=== PATIENT | female | born 1975 | race Caucasian/White ===

== ENCOUNTER 2022-08-25 06:24 | Emergency (ER) | payer MEDICAID, OTHER ==
[~2022-08-25] VITALS: Ht 168 cm; Wt 100.0 kg
[2022-08-25] MEDS ORDERED: ACETAMINOPHEN 500 MG TAB (TYLENOL) PO STA (06:45)
[2022-08-25] MEDS ORDERED: IBUPROFEN 800 MG (MOTRIN) TAB PO STA (06:45)
[2022-08-25] MEDS ORDERED: LISI2.5T13 PO (06:47)
--- NOTE | 2022-08-25 07:04 | ED Cough/URI ---
General Chief Complaint: COVID19 Suspect/Confirmed Stated Complaint: FEVER,BODY ACHES Nursing Triage Note: fever, body aches, sore throat, headache x1 day. Source: patient Exam Limitations: no limitations History of Present Illness Date Seen by Provider: Aug 25, 2022 Time Seen by Provider: 06:44 Initial Comments Here with report of fever, body aches, sore throat and headache for 1 day. She did take some Tylenol at 9 PM last night. She is not vaccinated for COVID. She does not know of any interaction. She is here with her son who also has a fever. Patient reports body aches are quite significant and she even has pain in all her joints. Denies nausea, vomiting or diarrhea. Timing/Duration: yesterday Severity/Quality: no cough Prior Episodes/Possible Cause: no prior episodes Associated Symptoms: fever/chills, muscle aches, nasal congestion, sore throat Allergies and Home Medications Allergies Coded Allergies: Penicillins (Verified Allergy, Unknown, 08/25/22) Patient Home Medication List Home Medication List Reviewed: Yes Lisinopril (Lisinopril) 2.5 Mg Tablet, Unknown Dose PO DAILY, (Reported) Entered as Reported by: PRAVEEN GARSIA on 08/25/22 0647 Last Action: New Order Review of Systems Review of Systems Constitutional: see HPI, chills, fever EENTM: see HPI Respiratory: No cough Cardiovascular: No chest pain, No edema Gastrointestinal: No nausea, No vomiting Genitourinary: no symptoms reported Musculoskeletal: joint pain, muscle pain Skin: no symptoms reported Past Pcowxwm-Suwdaz-Limqtj Hx Patient Social History Tobacco Use?: No Substance use?: No Alcohol Use?: No Pt feels they are or have been: No Immunizations Up To Date First/Initial COVID19 Vaccinat: na Past Medical History Surgery/Hospitalization HX: gastric bypass, htn Surgeries: No Respiratory: No Cardiac: Yes Hypertension Neurological: No Family Medical History Reviewed Nursing Family Hx Physical Exam Vital Signs - First Documented 08/25/22 06:47 Temp 38.8 Pulse 111 Resp 16 B/P (MAP) 118/88 (98) Pulse Ox 95 O2 Delivery Room Air Capillary Refill : Less Than 3 Seconds Height: '" Weight: lbs. oz. kg; 35.00 BMI Method: General Appearance: WD/WN, no apparent distress HEENT: PERRL/EOMI, TMs normal, pharynx normal Neck: full range of motion, supple Respiratory: lungs clear, normal breath sounds Cardiovascular: no murmur, tachycardia Gastrointestinal: non tender, soft Neurologic/Psychiatric: alert, oriented x 3 Skin: normal color, warm/dry Progress/Results/Core Measures Suspected Sepsis SIRS Temperature: Pulse: 111 Respiratory Rate: 16 Blood Pressure 118 /88 Mean: 98 Results/Orders Lab Results Laboratory Tests Test 08/25/22 06:39 Range/Units Influenza Type A (RT-PCR) Not Detected Not Detecte Influenza Type B (RT-PCR) Not Detected Not Detecte SARS-CoV-2 RNA (RT-PCR) Detected H Not Detecte My Orders Orders - VIRGEN PINA MD Acetaminophen Tablet (Tylenol Tablet) (08/25/22 06:45) Ibuprofen Tablet (Motrin Tablet) (08/25/22 06:45) Covid 19 Inhouse Test (08/25/22 06:45) Influenza A And B By Pcr (08/25/22 06:45) Vital Signs/I&O 08/25/22 06:47 Temp 38.8 Pulse 111 Resp 16 B/P (MAP) 118/88 (98) Pulse Ox 95 O2 Delivery Room Air Capillary Refill : Less Than 3 Seconds Blood Pressure Mean: 98 Progress Note : Progress Note Seen and evaluated. History and evaluation concerning for influenza or COVID or other viral respiratory illness. She is not vaccinated for COVID. We will go ahead and evaluate for influenza and COVID. Ibuprofen 800 mg p.o. and acetaminophen 1000 mg p.o. ordered. Monitor patient. Patient is COVID- positive. We did discuss oral therapy for COVID including Paxlovid. Patient has no history of renal dysfunction and is not on any medicines. We will go ahead and initiate that as an outpatient. Discharged home with return precautions. Patient verbalized understanding instructions and agreement with plan. Information sheet given. Departure Impression Primary Impression: COVID-19 virus infection Disposition: HOME, SELF-CARE Condition: Improved Departure-Patient Inst. Decision time for Depature: 08:00 Referrals: NO,LOCAL PHYSICIAN (PCP/Family) Primary Care Physician Patient Instructions: COVID-19 Overview, Nirmatrelvir and Ritonavir FDA Fact Sheet Add. Discharge Instructions: All discharge instructions reviewed with patient and/or family. Voiced understanding. You may take ibuprofen 600 mg every 8 hours as needed for fever or pain. You m ay take Tylenol/acetaminophen 1000 mg every 6 hours as needed for fever or pain. Drink plenty of fluids. You have COVID-19 and you should not going to public for at least 5 days and must be fever free for 24 hours. After that you should wear a mask in public for the next 5 days to prevent infection. Return for worse pain, fever, vomiting, weakness, breathing problems or other concerns as needed. Take medications as directed. Read over fact sheet for the medication prescribed. Scripts Nirmatrelvir/Ritonavir (Paxlovid 300-100 mg Pack (Eua)) 300 Mg (150 Mg X 2)-100 Mg Tab.ds.pk 1 EACH PO UD, #1 PKG Take per package directions Prov: VIRGEN PINA MD 08/25/22 VIRGEN PINA MD Aug 25, 2022 07:04
[2022-08-25] MEDS ORDERED: NIRM1TAB PO (08:04)
[2022-08-25 08:15] VITALS: BP 122/87
== END 2022-08-25 08:16 | disposition home or self-care (01) ==
LOC: ER 06:28
DX: U07.1 COVID-19 (principal); Z28.310 Unvaccinated for COVID-19
CPT/HCPCS: 87636; 99283

== ENCOUNTER 2022-08-27 17:39 | Emergency (ER) | payer MEDICAID ==
[~2022-08-27] VITALS: Ht 168 cm; Wt 100.0 kg
[~2022-08-27 17:39] MED LIST: LISI2.5T13 PO; NIRM1TAB PO
[2022-08-27 17:53] VITALS: BP 174/71
[2022-08-27] MEDS ORDERED: RT-ALBUTEROL HFA 8.5 GM INHALER IH STA (17:54)
--- NOTE | 2022-08-27 18:00 | ED Respiratory ---
General Chief Complaint: COVID19 Suspect/Confirmed Stated Complaint: SOB; COVID+ Source: patient Exam Limitations: no limitations History of Present Illness Date Seen by Provider: Aug 27, 2022 Time Seen by Provider: 17:42 Initial Comments 47yoF with no pertinent PMH coming in due to SOB. Became symptomatic with fever, body aches, and sore throat on 08/24. Went to the ER on 08/25 and was positive for COVID. Started on Paxlovid that day. On 08/26 overnight started feeling like she was wheezing and more SOB with activity. Denies any cardiac or pulmonary conditions. Does not smoke or take any other medicines daily. Last fever was yesterday. Otherwise denies any chest pain, leg swelling or pain, n/v/d, abd pain, history of DVT or PE. LMP was a couple weeks ago. Allergies and Home Medications Allergies Coded Allergies: Penicillins (Verified Allergy, Unknown, 08/25/22) Patient Home Medication List Home Medication List Reviewed: Yes Lisinopril (Lisinopril) 2.5 Mg Tablet, Unknown Dose PO DAILY, (Reported) Entered as Reported by: PRAVEEN GARSIA on 08/25/22 0647 Nirmatrelvir/Ritonavir (Paxlovid 300-100 mg Pack (Eua)) 300 Mg (150 Mg X 2)-100 Mg Tab.ds.pk, 1 EACH PO UD Prescribed by: VIRGEN PINA on 08/25/22 0804 Review of Systems Review of Systems Constitutional: fever, malaise EENTM: No nose congestion Respiratory: cough, short of breath Cardiovascular: No chest pain Gastrointestinal: No abdominal pain Genitourinary: no symptoms reported Musculoskeletal: no symptoms reported Skin: no symptoms reported Psychiatric/Neurological: No Symptoms Reported Hematologic/Lymphatic: No Symptoms Reported Immunological/Allergic: no symptoms reported All Other Systems Reviewed Negative Unless Noted: Yes Past Lwksvxb-Uxmnxy-Amdiwy Hx Patient Social History Tobacco Use?: No Use of E-Cig and/or Vaping dev: No Substance use?: No Alcohol Use?: No Pt feels they are or have been: No Immunizations Up To Date First/Initial COVID19 Vaccinat: na Second COVID19 Vaccination Christian: na Third COVID19 Vaccination Date: na Past Medical History Surgery/Hospitalization HX: gastric bypass, htn Surgeries: Yes (gastric bypass) Respiratory: No Cardiac: Yes Hypertension Neurological: No Physical Exam Vital Signs - First Documented 08/27/22 17:53 Temp 35.5 Pulse 87 Resp 18 B/P (MAP) 174/71 (105) Pulse Ox 99 O2 Delivery Room Air Capillary Refill : Height: '" Weight: lbs. oz. kg; 35.00 BMI Method: General Appearance: WD/WN, no apparent distress Eyes: Bilateral Eye Normal Inspection HEENT: PERRL/EOMI, normal ENT inspection, pharynx normal Neck: non-tender, full range of motion, supple, normal inspection Respiratory: chest non-tender, lungs clear, normal breath sounds, no respirator y distress, no accessory muscle use Cardiovascular: regular rate, rhythm, no edema, no murmur Gastrointestinal: normal bowel sounds, non tender, soft; No distended, No guarding, No rebound Extremities: normal range of motion, non-tender, normal inspection, no pedal edema, no calf tenderness, normal capillary refill Neurologic/Psychiatric: no motor/sensory deficits, alert, normal mood/affect Skin: normal color, warm/dry Lymphatic: no adenopathy Progress/Results/Core Measures Suspected Sepsis SIRS Temperature: Pulse: Respiratory Rate: Blood Pressure / Mean: Results/Orders My Orders Orders - SLICK JIMENEZ MD Chest 1 View Ap/Pa Only (08/27/22 17:54) Albuterol Inhaler (Albuterol) (08/27/22 17:54) Vital Signs/I&O 08/27/22 08/27/22 17:53 17:57 Temp 35.5 Pulse 87 Resp 18 B/P (MAP) 174/71 (105) Pulse Ox 99 O2 Delivery Room Air Room Air Capillary Refill : Progress Note : Progress Note 47-year-old female with above history coming in due to shortness of breath in the setting of being COVID-positive. ABCs were intact and vitals were stable on presentation. The patient's oxygen was 99 to 100% even with ambulation around the room. Lungs sounded clear and she is not in any type of respiratory distress. In fact she looks very comfortable laying on the bed. Chest x-ray with some patchiness bilaterally which likely is COVID related versus Co. bacterial infection, no pneumothorax pneumothorax, normal cardiac silhouette on my interpretation. Given this, discussed with the patient antibiotics versus watching and waiting. We will trial doxycycline in case this is bacterial pneumonia developing. Trialed albuterol to see if that would help her symptoms. She is not showing any signs of a DVT. She is low risk for PE per [place] criteria and is PERC negative. I believe she is stable for discharge with outpatient follow-up. She was sent home with strict return precautions. Diagnostic Imaging Diagonstic Imaging: Xray Plain Films/CT/US/NM/MRI: chest Comments Some patchiness perihilar bilaterally, no pneumothorax, normal cardiac silhouette on my interpretation. Departure Impression Primary Impression: COVID-19 virus infection Additional Impression: Shortness of breath Disposition: HOME, SELF-CARE Condition: Stable Departure-Patient Inst. Decision time for Depature: 18:15 Referrals: NO,LOCAL PHYSICIAN (PCP/Family) Primary Care Physician Patient Instructions: COVID-19 Overview Add. Discharge Instructions: Fortunately do not show any signs of pneumonia on exam on your x-ray. Continue to take the medication you were prescribed the other day until it is finished. Continue to take ibuprofen and/or Tylenol as needed for fever or body aches. You can use the inhaler at home if you feel like it is helping. Follow-up with your regular doctor if you do not feel like you are improving. I do recommend buying an oxygen probe that you can get at any pharmacy. If you feel short of breath and your oxygen is 89% or lower for a prolonged period, will not go back up with sitting and deep breaths, then I recommend coming back to the ER. Scripts Doxycycline Hyclate (Doxycycline Hyclate) 100 Mg Tablet 100 MG PO BID for 7 Days, #14 TAB Prov: SLICK JIMENEZ MD 08/27/22 Work/School Note: Work Release Form Date Seen in the Emergency Department: Aug 27, 2022 Return to Work: Aug 30, 2022 Restrictions: Return-No Fever (24hrs) SLICK JIMENEZ MD Aug 27, 2022 18:00
[2022-08-27] MEDS ORDERED: DOXY100T2 PO (18:12)
[2022-08-27] MEDS ORDERED: DOXYCYCLINE 100 MG (VIBRAMYCIN) TABLET PO STA (18:12)
--- NOTE | 2022-08-27 18:53 | Diagnostic Imaging Report ---
INDICATION: SOB, COVID + COMPARISON: None FINDINGS: Single frontal view of the chest demonstrates normal heart size and pulmonary vascularity. The lungs are well aerated and clear. No large pleural effusion or pneumothorax is seen. The visualized osseous structures show no acute abnormalities. IMPRESSION: 1. No acute cardiopulmonary process. Dictated by: Dictated on workstation # [id number]
== END 2022-08-27 18:20 | disposition home or self-care (01) ==
LOC: EDUNIT# 17:39 → ER FS 17:41
DX: U07.1 COVID-19 (principal); R06.02 Shortness of breath; Z28.310 Unvaccinated for COVID-19; Z88.0 Allergy status to penicillin; Z73.0 Burn-out
CPT/HCPCS: 71045

== ENCOUNTER 2023-05-06 20:10 | Emergency (ER) | payer MEDICAID ==
[~2023-05-06] VITALS: Ht 167.7 cm; Wt 100.0 kg
[~2023-05-06 20:10] MED LIST changes: +DOXY100T2 PO
[2023-05-06 20:20] VITALS: BP 179/102
--- NOTE | 2023-05-06 20:20 | ED Lower Extremity ---
General Stated Complaint: LEFT ANKLE History of Present Illness Date Seen by Provider: May 06, 2023 Time Seen by Provider: 20:18 Initial Comments 47-year-old female is here with complaints of tripping and falling in her friend step which is made of cement, and twisting her left ankle. Patient has left ankle swelling and pain and is unable to bear weight on it. Denies sensory loss, head strike, LOC. Allergies and Home Medications Allergies Coded Allergies: Penicillins (Verified Allergy, Unknown, 08/25/22) Patient Home Medication List Home Medication List Reviewed: Yes Doxycycline Hyclate (Doxycycline Hyclate) 100 Mg Tablet, 100 MG PO BID Prescribed by: SLICK JIMENEZ on 08/27/221811 Lisinopril (Lisinopril) 2.5 Mg Tablet, Unknown Dose PO DAILY, (Reported) Entered as Reported by: PRAVEEN GARSIA on 08/25/22 0647 Nirmatrelvir/Ritonavir (Paxlovid 300-100 mg Pack (Eua)) 300 Mg (150 Mg X 2)-100 Mg Tab.ds.pk, 1 EACH PO UD Prescribed by: VIRGEN PINA on 08/25/22 0804 Review of Systems Constitutional: no symptoms reported Musculoskeletal: joint pain, joint swelling Past Mceqtiu-Svlrib-Zkpxsl Hx Immunizations Up To Date First/Initial COVID19 Vaccinat: na Second COVID19 Vaccination Christian: na Third COVID19 Vaccination Date: na Past Medical History Surgery/Hospitalization HX: gastric bypass, htn Surgeries: Yes (gastric bypass) Respiratory: No Cardiac: Yes Hypertension Neurological: No Physical Exam Vital Signs Vital Signs - First Documented 05/06/23 20:20 Temp 36.4 Pulse 105 Resp 20 B/P (MAP) 179/102 (127) Pulse Ox 100 O2 Delivery Room Air Capillary Refill : Height, Weight, BMI Height: '" Weight: lbs. oz. kg; 35.00 BMI Method: General Appearance: WD/WN, mild distress HEENT: PERRL/EOMI Neck: non-tender, full range of motion, supple Knees: left knee non-tender, left knee normal inspection, left knee normal range of motion, left knee no evidence of injury Ankles: left ankle bone tenderness, left ankle limited range of motion (Due to pain), left ankle pain, left ankle soft tissue tenderness, left ankle swelling (Over the left lateral malleolus which is tender to touch) Feet: left foot non-tender, left foot normal inspection, left foot normal range of motion, left foot no evidence of injury Neurologic/Tendon: normal sensation, normal motor functions, normal tendon functions Neurologic/Psychiatric: no motor/sensory deficits, alert, normal mood/affect, oriented x 3 Skin: normal color Progress/Results/Core Measures Results/Orders My Orders Orders - VIRGILIO NORRIS MD Ankle 3 View Left (05/06/23 20:20) Ketorolac Injection (Toradol Injection) (05/06/23 20:30) Ice: Apply To Affected Area (05/06/23 20:20) Medications Given in ED Current Medications Medications Dose Ordered Sig/Pedro Luis Route Start Time Stop Time Status Last Admin Dose Admin Ketorolac Tromethamine 30 mg ONCE ONCE IM 05/06/23 20:30 05/06/23 20:31 DC 05/06/23 20:28 30 MG Vital Signs/I&O 05/06/23 20:20 Temp 36.4 Pulse 105 Resp 20 B/P (MAP) 179/102 (127) Pulse Ox 100 O2 Delivery Room Air Progress Progress Note : Progress Note 1. CHIP FRACTURE OF LEFT LATERAL MALLEOLUS: - XR LEFT ANKLE: Soft tissue swelling. Questionable tiny avulsed fragment of the distal tip of the lateral malleolus of the distal fibula. - Chip fracture of left lateral malleolus - Walking boot and crutches given - Ice application advised and elevation of leg - Follow up with Ortho within 7days. Call to make appointment - Advised Naproxen capsules 440mg Q12H and extra strength Tylenol, 650mg every 4 hours as needed for pain -The patient was seen in the ED, and treated appropriately to presentation at a specific point in time. Patient is informed that there is a possibility that disease and illness can evolve and change in acuity rapidly or slowly after patient is discharged from the ER. Precautionary advice given to the patient for immediate return to ER if symptoms worsen or do not resolve, and to seek emergency care sooner rather than later. Pt also advised on the importance of PCP follow up and compliance with management and follow up plan with PCP and/or specialist, as this is part of the management plan. Pt verbally expressed understanding. Diagnostic Imaging Diagonstic Imaging: Xray Plain Films/CT/US/NM/MRI: ankle Comments [facility] [place], [place] NAME: MELVIN CORDOVA [facility] REC#: [id number] PT STATUS: REG ER : 1975 PHYSICIAN: VIRGILIO NORRIS MD ADMIT DATE: 05/06/23/ER FS Signed Date of Exam:05/06/23 ANKLE 3 VIEW LEFT INDICATION: Left ankle pain post injury AP, oblique, and lateral views of the left ankle are obtained. There is soft tissue swelling. There is a questionable small avulsed fragment from the tip of the lateral malleolus of the distal fibula. There is no other significant bony abnormality. IMPRESSION: Soft tissue swelling. Questionable tiny avulsed fragment of the distal tip of the lateral malleolus of the distal fibula. Dictated by: Dictated on workstation # [id number] Dict: 05/06/232035 Trans: 05/06/232049 CV [id number] Interpreted by: LESLIE LUIS MD Electronically signed by: LESLIE LUIS MD 05/06/232049 Departure Impression Primary Impression: Fracture of lateral malleolus of left ankle Qualified Codes: S82.65XA - Nondisplaced fracture of lateral malleolus of left fibula, initial encounter for closed fracture Disposition: HOME, SELF-CARE Condition: Improved Departure-Patient Inst. Referrals: NO,LOCAL PHYSICIAN (PCP/Family) Primary Care Physician Patient Instructions: Ankle fracture, How to Use Crutches, Going Up and Down Curbs or Stairs With a Walker or Crutches Add. Discharge Instructions: - Chip fracture of left lateral malleolus - Walking boot and crutches given - Ice application advised and elevation of leg - Follow up with Ortho within 7days. Call to make appointment - Advised Naproxen capsules 440mg Q12H and extra strength Tylenol, 650mg every 4 hours as needed for pain VIRGILIO NORRIS MD May 06, 2023 20:20
[2023-05-06] MEDS ORDERED: KETOROLAC 30 MG/ML VIAL IM ONE (20:30)
--- NOTE | 2023-05-06 20:38 | Diagnostic Imaging Report ---
INDICATION: Left ankle pain post injury AP, oblique, and lateral views of the left ankle are obtained. There is soft tissue swelling. There is a questionable small avulsed fragment from the tip of the lateral malleolus of the distal fibula. There is no other significant bony abnormality. IMPRESSION: Soft tissue swelling. Questionable tiny avulsed fragment of the distal tip of the lateral malleolus of the distal fibula. Dictated by: Dictated on workstation # [id number]
== END 2023-05-06 21:46 | disposition home or self-care (01) ==
LOC: EDUNIT# 20:10 → ER FS 20:11
DX: S82.62XA Displaced fracture of lateral malleolus of left fibula, initial encounter for closed fracture (principal); Z28.310 Unvaccinated for COVID-19; W01.0XXA Fall on same level from slipping, tripping and stumbling without subsequent striking against object, initial encounter; X50.1XXA Overexertion from prolonged static or awkward postures, initial encounter
CPT/HCPCS: 73610